=== PATIENT | female | born 1970 | race African-American/Black ===

== ENCOUNTER → 2017-08-18 | Outpatient (CLI) | payer BC | LOC: RAD 01:26 | DX: Z12.31 Encounter for screening mammogram for malignant neoplasm of breast (principal) ==

== ENCOUNTER → 2018-08-19 | Outpatient (CLI) | payer BC | LOC: RAD 01:38 | DX: Z12.31 Encounter for screening mammogram for malignant neoplasm of breast (principal) ==

== ENCOUNTER → 2019-08-29 | Outpatient (CLI) | payer BC | LOC: RAD 01:10 | DX: Z12.31 Encounter for screening mammogram for malignant neoplasm of breast (principal) ==

== ENCOUNTER → 2020-09-03 | Outpatient (CLI) | payer BC | LOC: BC 15:10 | PROVIDERS: ATTEND Family Medicine | DX: Z12.31 Encounter for screening mammogram for malignant neoplasm of breast (principal) ==

== ENCOUNTER → 2021-09-04 | Outpatient (CLI) | payer OTHER | LOC: BC 13:00 | PROVIDERS: ATTEND Family Medicine | DX: Z12.31 Encounter for screening mammogram for malignant neoplasm of breast (principal) ==